=== PATIENT | female | born 1990 | race Caucasian/White ===

== ENCOUNTER → 2017-06-25 | Outpatient (CLI) | payer OTHER | END | disposition home or self-care (01) | LOC: GMA 16:34 | PROVIDERS: ATTEND Nurse Practitioner Family | DX: H81.10 Benign paroxysmal vertigo, unspecified ear (principal); E53.8 Deficiency of other specified B group vitamins ==

== ENCOUNTER → 2017-07-03 | Outpatient (CLI) | payer OTHER | END | disposition home or self-care (01) | LOC: GMAM 18:15 | PROVIDERS: ATTEND Family Medicine | DX: N39.0 Urinary tract infection, site not specified (principal); E04.8 Other specified nontoxic goiter; R55 Syncope and collapse ==

== ENCOUNTER → 2017-07-08 | Outpatient (CLI) | payer OTHER, SELFPAY ==
--- NOTE | 2017-07-09 04:43 | US ---
Procedure: US THYROID Exam Date: 07/08/2017 12:00 AM CDT Ordering Provider: BRAD DARBY Clinical Indication: ENLARGED THYROID Comparison: None Technique: Real-time ultrasonography was obtained of the thyroid gland and loan representative images were recorded. Findings: The right lobe of the thyroid gland measures 5.3 x 1.9 x 1.8 cm in CC, AP, and transverse dimensions. There is a subtle 0.9 x 1.3 cm hypoechoic midpole nodule. This is situated posteriorly in the thyroid parenchyma. The left lobe of the thyroid gland measures 4.1 x 2.0 x 2.1 cm in CC, AP, and transverse dimensions. Subtle 1.2 x 0.6 x 0.5 cm hypoechoic nodule within the deep central portion of the left thyroid lobe. The thyroid isthmus is of normal thickness. There are no nodules in the thyroid isthmus. Impression: 1. Slightly enlarged and heterogeneous thyroid goiter with small bilateral nodules. None of these nodules require histologic sampling at this time. Electronically signed by: Luis Kessler MD 07/09/2017 4:42 AM CDT
== END | disposition home or self-care (01) ==
LOC: US 10:20
PROVIDERS: ATTEND Family Medicine
DX: E07.9 Disorder of thyroid, unspecified (principal)

== ENCOUNTER → 2018-01-27 | Outpatient (CLI) | payer OTHER | LOC: GMAM 17:24 | PROVIDERS: ATTEND Family Medicine | DX: N97.9 Female infertility, unspecified (principal); E04.8 Other specified nontoxic goiter ==

== ENCOUNTER → 2019-05-03 | Outpatient (CLI) | payer OTHER | LOC: GMAM 18:02 | PROVIDERS: ATTEND Family Medicine | DX: R10.84 Generalized abdominal pain (principal) ==